=== PATIENT | female | born 1990 | race Caucasian/White ===

== ENCOUNTER 2017-08-25 12:33 | Emergency (ER) | payer SELFPAY ==
[2017-08-25 13:15] VITALS: BP 105/52; PULSE 67; RESP 20; TEMP 37; O2SAT 97; BMI 33.1
--- NOTE | 2017-08-25 13:23 | HMH.EDUTC ---
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 We will provide you with a courtesy one month refill while you find a new primary care [facility] pharmacy will work on finding either a discount coupon or free month supply for you. He has to order the medication. See him tomorrow. We have provided you with a list of providers accepting patients. I would encourage you find him a new primary care provider and make an appt TERESA as it can take weeks to get a new patient appointment. In the meantime, follow up in the clinic or ER for new, worsening or persistent symptoms Prescriptions: Levothyroxine Sodium [Tirosint] 112 mcg PO DAILY #30 cap Time of Disposition: 13:43 Medical Decision Making Vital Signs: 08/25/17 13:15 08/25/17 13:44 Temperature 98.6 F 97.8 F Temperature Source Temporal Artery Scan Pulse Rate 71 Pulse Rate [Right Brachial] 67 Respiratory Rate 20 20 Blood Pressure 105/67 Blood Pressure [Right Arm] 105/52 Blood Pressure Mean [Right Arm] 69 Blood Pressure Source [Right Arm] Automatic Cuff Blood Pressure Position [Right Arm] Sitting 02 Sat by Pulse Oximetry 97 Oxygen Delivery Method Room Air - Junaid Inquiry Pt receiving controlled substance: No [facility] [place] HPI - General Stated complaint: MED REFILL Time Seen by Provider: 08/25/17 13:23 Mode of Arrival: Ambulatory Source of Information: Patient Limitations: No Limitations Description of Symptoms (Recalled from Triage Doc. by RN): Needs medication refil HEENT Symptoms (Recalled from RN notes): No Resp Symptoms (Recalled from RN notes): No Skin Symptoms (Recalled from RN notes): No MS Symptoms (Recalled from RN notes): No Functional Status (Recalled from RN notes): n/a - History of Present Illness Provider Complaint: Here requesting refill of thyroid medication, tirosint. Hx of lactose intolerance and reports this medication has been the most tolerated of various levothyroxines she has tried throughout the years. Recently moved here. Has not established with a PCP yet. Started here at [facility] this month so will have health insurance next month. Plans to pay for medication out of pocket but didn't want to choose a PCP until she knew the type of insurance she would have. Has spaced this last week of medication out to every 1-2 days. Has one left for tomorrow. Denies symptoms. I just need a refill to hold me over a few more weeks then i should be ok - Related Data Home Medications Medication Instructions Recorded Confirmed Levothyroxine Sodium [Tirosint] 112 mcg PO DAILY 08/25/17 08/25/17 Previous Rx's Medication Instructions Recorded Levothyroxine Sodium [Tirosint] 112 mcg PO DAILY #30 cap 08/25/17 Allergies Allergy/AdvReac Type Severity Reaction Status Date / Time Penicillins Allergy Rash Verified 08/25/17 13:23 - Worker's Comp Is this a Worker's Comp case?: No Is this an [facility] Worker's Comp?: No Is this a [place] Worker's Comp?: No [facility] History I have reviewed the patient's past medical history: Yes Medical History: Denies:: Diabetes Mellitus Type 1, Diabetes Mellitus Type 2, Hypertension Other Medical History: Reports: Hypothyroidism, Other (hashimotos) Other Surgeries: Yes: Other (multiple ear surgeries 2004ish and 2006ish, ex lap 2013) Amputation: No Fractures: No - *Social History Alcohol Intake: never - Psychiatric History Expresses thoughts of harming self/others: None Suicide Plan Description: No Plan ROS Obtained: Yes Systems reviewed as appropriate & no additional complaints - Constitutional Constitutional: Denies fatigue, Denies fever(s) - Eyes Eyes: Denies change in vision - ENT Ears, Nose, Mouth, and Throat: Denies dry johana
--- NOTE | 2017-08-25 13:37 | ED_ITS ---
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 We will provide you with a courtesy one month refill while you find a new primary care [facility] pharmacy will work on finding either a discount coupon or free month supply for you. He has to order the medication. See him tomorrow. We have provided you with a list of providers accepting patients. I would encourage you find him a new primary care provider and make an appt TERESA as it can take weeks to get a new patient appointment. In the meantime, follow up in the clinic or ER for new, worsening or persistent symptoms Prescriptions: Levothyroxine Sodium [Tirosint] 112 mcg PO DAILY #30 cap Time of Disposition: 13:43 Medical Decision Making Vital Signs: 08/25/17 13:15 08/25/17 13:44 Temperature 98.6 F 97.8 F Temperature Source Temporal Artery Scan Pulse Rate 71 Pulse Rate [Right Brachial] 67 Respiratory Rate 20 20 Blood Pressure 105/67 Blood Pressure [Right Arm] 105/52 Blood Pressure Mean [Right Arm] 69 Blood Pressure Source [Right Arm] Automatic Cuff Blood Pressure Position [Right Arm] Sitting 02 Sat by Pulse Oximetry 97 Oxygen Delivery Method Room Air - Junaid Inquiry Pt receiving controlled substance: No [facility] [place] HPI - General Stated complaint: MED REFILL Time Seen by Provider: 08/25/17 13:23 Mode of Arrival: Ambulatory Source of Information: Patient Limitations: No Limitations Description of Symptoms (Recalled from Triage Doc. by RN): Needs medication refil HEENT Symptoms (Recalled from RN notes): No Resp Symptoms (Recalled from RN notes): No Skin Symptoms (Recalled from RN notes): No MS Symptoms (Recalled from RN notes): No Functional Status (Recalled from RN notes): n/a - History of Present Illness Provider Complaint: Here requesting refill of thyroid medication, tirosint. Hx of lactose intolerance and reports this medication has been the most tolerated of various levothyroxines she has tried throughout the years. Recently moved here. Has not established with a PCP yet. Started here at [facility] this month so will have health insurance next month. Plans to pay for medication out of pocket but didn't want to choose a PCP until she knew the type of insurance she would have. Has spaced this last week of medication out to every 1-2 days. Has one left for tomorrow. Denies symptoms. I just need a refill to hold me over a few more weeks then i should be ok - Related Data Home Medications Medication Instructions Recorded Confirmed Levothyroxine Sodium [Tirosint] 112 mcg PO DAILY 08/25/17 08/25/17 Previous Rx's Medication Instructions Recorded Levothyroxine Sodium [Tirosint] 112 mcg PO DAILY #30 cap 08/25/17 Allergies Allergy/AdvReac Type Severity Reaction Status Date / Time Penicillins Allergy Rash Verified 08/25/17 13:23 - Worker's Comp Is this a Worker's Comp case?: No Is this an [facility] Worker's Comp?: No Is this a [place] Worker's Comp?: No [facility] History I have reviewed the patient's past medical history: Yes Medical History: Denies:: Diabetes Mellitus Type 1, Diabetes Mellitus Type 2
[2017-08-25 13:44] VITALS: BP 105/67; PULSE 71; RESP 20; TEMP 36.6; O2SAT 99
== END 2017-08-25 13:45 | disposition home or self-care (01) ==
PROVIDERS: Emergency Provider Nurse Practitioner Family
DX: E03.8 Other specified hypothyroidism (principal)
CPT/HCPCS: 99202

== ENCOUNTER → 2017-09-23 10:22 | Outpatient (REF) | payer OTHER, SELFPAY ==
[2017-09-23 13:31] LABS: Basophils % 0.2 % (0.1-2.0); Eosinophils # 0.2 K/mm3 (0.0-0.4); Eosinophils % 4.2 % (0.1-12.0); Hematocrit 40.6 % (37.0-47.0); Lymphocytes # 1.2 K/mm3 (0.7-4.5); Mean Corpuscular HGB Conc 32.1 g/dL (31.8-35.4); Mean Corpuscular Hemoglobin 28.2 pg (27.0-31.2); Mean Corpuscular Volume 87.7 fl (81-99); Mean Platelet Volume 8.5 fl (7.4-10.4); Monocytes # 0.2 K/mm3 (0.1-1.0); Monocytes % 5.4 % (1.7-9.3); Neutrophils # 2.6 K/mm3 (1.8-7.8); Neutrophils % 61.2 % (37.0-80.0); Platelet Count 203 K/mm3 (142-424); Red Blood Count 4.63 M/mm3 (4.20-5.40); Red Cell Distribution Width 12.9 % (11.5-17.5); White Blood Count 4.3 K/mm3 (4.8-10.8)
[2017-09-23 13:55] LABS: Alanine Aminotransferase 27 U/L (12-78); Albumin Level 3.7 gm/dL (3.4-5.0); Albumin/Globulin Ratio 1.1 (1.1-1.8); Alkaline Phosphatase 36 U/L (46-116); Anion Gap 11.6 mEq/L (5-15); Aspartate Amino Transferase 12 U/L (15-37); Bilirubin,Total 0.3 mg/dL (0.2-1.0); Blood Urea Nitrogen 9 mg/dL (7-18); Carbon Dioxide 27 mmol/L (21.0-32.0); Chloride 108 mmol/L (98-107); Cholesterol 160 mg/dL (140-200); Creatinine,Serum 0.79 mg/dL (0.55-1.02); Estimated Glomerular Filt Rate 89 ml/min (>60); Free T4 (Free Thyroxine) 0.92 ng/dl (0.76-1.46); GFR (African American) 107 ML/MIN (>60); Globulin 3.3 gm/dl (1.3-3.2); HDL Cholesterol 54 mg/dL (29-89); LDL Cholesterol 88 mg/dL (0-130); Potassium 4.6 mmoL/L (3.5-5.1); Sodium 142 mmol/L (136-145); Thyroid Stimulating Hormone 10.21 uIU/ml (0.358-3.740); Triglycerides 89 mg/dL (30-200); VLDL Cholesterol 18 mg/dL (0-40)
[2017-09-23 13:59] LABS: Glucose 87 mg/dL (74-106)
[2017-09-23 14:30] LABS: Hemoglobin A1C 4.9 % (0.0-7.0)
[2017-09-24 10:31] LABS: Vitamin D 25 Hydroxy 21.9 ng/mL (30.0-100.0)
== END ==
LOC: LAB 10:22
PROVIDERS: Visit Provider Nurse Practitioner Family
DX: R53.83 Other fatigue (principal)
CPT/HCPCS: 80053; 80061; 82652; 83036; 84439; 84443; 85025

== ENCOUNTER → 2017-11-11 16:09 | Outpatient (CLI) | payer OTHER, SELFPAY ==
[2017-11-11 17:44] LABS: Thyroid Stimulating Hormone 0.43 uIU/ml (0.358-3.740)
== END ==
PROVIDERS: Visit Provider Nurse Practitioner Family
DX: E03.9 Hypothyroidism, unspecified (principal)
CPT/HCPCS: 36415; 84443

== ENCOUNTER → 2017-11-13 14:10 | Outpatient (CLI) | payer OTHER, SELFPAY ==
[2017-11-13 16:05] LABS: Thyroid Stimulating Hormone 0.71 uIU/ml (0.358-3.740)
== END ==
PROVIDERS: Visit Provider Nurse Practitioner Family
DX: E03.9 Hypothyroidism, unspecified (principal)
CPT/HCPCS: 36415; 84443

== ENCOUNTER → 2017-12-11 15:22 | Outpatient (CLI) | payer OTHER, SELFPAY ==
[2017-12-11 17:54] LABS: Thyroid Stimulating Hormone 14.48 uIU/ml (0.358-3.740)
== END ==
PROVIDERS: Visit Provider Nurse Practitioner Family
DX: E03.9 Hypothyroidism, unspecified (principal)
CPT/HCPCS: 36415; 84443

== ENCOUNTER → 2018-01-10 10:37 | Outpatient (CLI) | payer OTHER, SELFPAY ==
[2018-01-10 13:05] LABS: T4 (Thyroxine) 4.8 ug/dl (4.7-13.3); Thyroid Stimulating Hormone 6.05 uIU/ml (0.358-3.740)
== END ==
PROVIDERS: PCP Nurse Practitioner Family; Visit Provider Nurse Practitioner Family
DX: E03.9 Hypothyroidism, unspecified (principal)
CPT/HCPCS: 36415; 84436; 84443